=== PATIENT | male | born 1935 | race Caucasian/White ===

== ENCOUNTER 2017-08-29 08:34 | Emergency (ER) | payer OTHER, MEDICARE ==
[~2017-08-29] VITALS: Ht 177.8 cm; Wt 84.9 kg
[~2017-08-29 08:34] MED LIST: ASPIR 8181 M1 PO; ATIVAN0.5 MG PO; AZELASTINE137 MCG/0. BOTH NARES; Ascorbic Acid,Ester- PO; CALAN SR,COVER120 MG PO; CEFTIN500 MG PO; CENTRUM SILVER1 EAC3 PO; Colace PO; Cymbalta PO; DECADRON4 MG PO; DEXAMETHASONE4 MG PO; DOXYCYCLINE HY100 MG PO; DYMISTA NASAL S23 GM BOTH NARES; Dulcolax PO; Dulcolax PR; EMERGEN-C 1,01000 MG PO; FLONASE16 G1 BOTH NARES; FLUTICASONE PRO16 GM BOTH NARES; Florinef Acetate PO; HORIZANT600 MG PO; Heparin Sodium SC; KLOR-CON 1010 ME1 PO; LASIX20 MG PO; LEVAQUIN750 MG PO; LEVOFLOXACIN750 MG PO; LEVOTHYROXINE50 MCG PO; LIDODERM 5% P1 PATCH TD; LOPRESSOR25 MG PO; LOW DOSE ASPIRI81 M1 PO; LYRICA50 MG PO; LYRICA75 MG PO; Levothroid,Synthroid PO; MIDODRINE HCL5 MG PO; Milk Of Magnesia,MOM PO; OS-CAL 500+D T1 EAC1 PO; OXYCODONE5 MG PO; OYST-CAL D, OS500 M1 PO; PROAIR HFA8.5 GM IH; Pepcid PO; REVLIMID10 MG PO; ROXICODONE5 MG PO; SENOKOT S,PE1 TABLET PO; SPIRIVA RESPIMAT4 G1 IH; SPIRIVA RESPIMAT4 GM IH; SYNTHROID50 MCG PO; TAMSULOSIN HCL0.4 MG PO; THERAGRAN1 TABLET PO; Tylenol Regular Stre PO; VERAPAMIL HCL180 MG PO; VERAPAMIL SR180 MG PO; Zestril,Prinivil PO; oxyCODONE PO
[2017-08-29] MEDS ORDERED: POMALYST3 MG PO (08:41)
[2017-08-29 09:34] LABS: EOSINOPHIL (%) 3.7 % (0-5); EOSINOPHIL COUNT 0.2 K/uL (0-0.3); HEMATOCRIT 20.5 % (38.0-50.0); INSTRUMENT ABS NEUTROPHIL CT 2.5 K/uL; MCH 33.2 PG (29.0-34.0); MCHC 32.2 G/DL (30.0-36.0); MONOCYTE (%) 10.3 % (3-12); MONOCYTE COUNT 0.4 K/uL (0-0.8); NEUTROPHIL (%) 60.4 % (45-76); NEUTROPHIL COUNT 2.5 K/uL (1.8-6.4); PLATELET COUNT 111 K/uL (156-360); RBC DIS.WIDTH-CV 15.7 % (11.8-14.6); RBC DIS.WIDTH-SD 57.4 % (39-53); WHITE BLOOD COUNT 4.1 K/uL (4.1-10.2)
[2017-08-29 09:35] LABS: RED BLOOD COUNT 1.99 M/uL (4.00-5.50)
[2017-08-29 09:42] LABS: CHLORIDE 105 mEq/L (99-109); POTASSIUM 4.7 mEq/L (3.7-5.4); SODIUM 139 mEq/L (136-147)
[2017-08-29 09:44] LABS: GLUCOSE 109 mg/dL (70-99)
[2017-08-29 09:45] LABS: ANION GAP 13 MEQ/L (2-14)
[2017-08-29 09:46] LABS: TOTAL BILIRUBIN 0.6 mg/dL (0.0-1.0)
[2017-08-29 09:48] LABS: ALKALINE PHOSPHATASE 52 IU/L (3-129); GFR ESTIMATE (CALCULATED) 52 mL/min/
[2017-08-29 09:49] LABS: TROP-I INTERPRETATION NEGATIVE; TROPONIN-I < 0.01 ng/mL (0.0-0.30); UREA NITROGEN (BUN) 31 mg/dL (9-23)
[2017-08-29 12:15] LABS: TROP-I INTERPRETATION NEGATIVE; TROPONIN-I < 0.01 ng/mL (0.0-0.30)
[2017-08-29 13:51] VITALS: BP 125/67
[2017-08-29 14:31] VITALS: BP 125/72
[2017-08-29 15:31] VITALS: BP 142/76
[2017-08-29 16:30] VITALS: BP 160/85
[2017-08-29 17:08] VITALS: BP 183/83
[2017-08-29 17:42] VITALS: BP 183/83
[2017-08-30] MEDS ORDERED: FLONASE ALLERG9.9 ML BOTH NARES (13:31)
== END 2017-08-29 17:42 | disposition home or self-care (01) ==
LOC: EME 08:34
PROVIDERS: Emergency Medicine
PROC: 30233N1 Transfusion of Nonautologous Red Blood Cells into Peripheral Vein, Percutaneous Approach (ICD-10-PCS; principal; 2017-08-29)
DX: D64.9 Anemia, unspecified (principal); Z85.79 Personal history of other malignant neoplasms of lymphoid, hematopoietic and related tissues; R06.00 Dyspnea, unspecified; R51 Headache; Z92.21 Personal history of antineoplastic chemotherapy
CPT/HCPCS: 71020; 80053; 84484; 85025; 85379; 86850; 86870; 86900; 86901; 86920; 93005; 99281; 99285; J7040; P9040

== ENCOUNTER 2017-09-20 02:45 | Inpatient (IN) | payer OTHER, MEDICARE ==
[~2017-09-20] VITALS: Ht 177.8 cm; Wt 82.0 kg
[~2017-09-20 02:45] MED LIST changes: +FLONASE ALLERG9.9 ML BOTH NARES; +POMALYST3 MG PO
[2017-09-20 03:38] LABS: HEMATOCRIT 22.1 % (38.0-50.0); MCHC 32.6 G/DL (30.0-36.0); MCV 101.4 FL (86-99); MEAN PLAT.VOLUME 10.9 uM^3 (9.0-12.4); NRBC (%) 0.4 /100 WBC (0-0); PLATELET COUNT 110 K/uL (156-360); RED BLOOD COUNT 2.18 M/uL (4.00-5.50); WHITE BLOOD COUNT 4.9 K/uL (4.1-10.2)
[2017-09-20 03:49] LABS: CHLORIDE 105 mEq/L (99-109); POTASSIUM 4.4 mEq/L (3.7-5.4); SODIUM 135 mEq/L (136-147)
[2017-09-20 03:52] LABS: ANION GAP 11 MEQ/L (2-14)
[2017-09-20 03:53] LABS: TOTAL BILIRUBIN 0.3 mg/dL (0.0-1.0)
[2017-09-20 03:54] LABS: ALKALINE PHOSPHATASE 50 IU/L (3-129)
[2017-09-20 03:55] LABS: GFR ESTIMATE (CALCULATED) 36 mL/min/ (58.99-99999)
[2017-09-20 03:56] LABS: GLUCOSE 79 mg/dL (70-99); UREA NITROGEN (BUN) 47 mg/dL (9-23)
[2017-09-20 03:58] LABS: LIPASE 7 U/L (1.0-51.0)
[2017-09-20 05:04] LABS: EOSINOPHIL (%) 0.2 % (0-5); IMMATURE GRANULOCYTE (%) 2.1 % (0.0-0.7); IMMATURE GRANULOCYTE COUNT 0.1 K/uL; INSTRUMENT ABS NEUTROPHIL CT 3.1 K/uL; LYMPHOCYTE COUNT 1.2 K/uL (1.0-2.8); MONOCYTE (%) 9.5 % (3-12); MONOCYTE COUNT 0.5 K/uL (0-0.8); NEUTROPHIL (%) 63.7 % (45-76); NEUTROPHIL COUNT 3.1 K/uL (1.8-6.4)
[2017-09-20 14:24] LABS: HEMATOCRIT 21.1 % (38.0-50.0); MCV 99.1 FL (86-99)
[2017-09-20 14:48] VITALS: BP 179/82
[2017-09-20 19:40] VITALS: BP 150/70
[2017-09-20 23:22] VITALS: BP 180/80
[2017-09-21 05:25] VITALS: BP 162/82
[2017-09-21 05:56] LABS: EOSINOPHIL (%) 1.6 % (0-5); EOSINOPHIL COUNT 0.1 K/uL (0-0.3); HEMATOCRIT 22.9 % (38.0-50.0); IMMATURE GRANULOCYTE (%) 1.4 % (0.0-0.7); IMMATURE GRANULOCYTE COUNT 0.1 K/uL; INSTRUMENT ABS NEUTROPHIL CT 2.2 K/uL; LYMPHOCYTE COUNT 0.8 K/uL (1.0-2.8); MCH 33.2 PG (29.0-34.0); MCHC 32.8 G/DL (30.0-36.0); MCV 101.3 FL (86-99); MONOCYTE (%) 13.6 % (3-12); MONOCYTE COUNT 0.5 K/uL (0-0.8); NEUTROPHIL (%) 60.6 % (45-76); NEUTROPHIL COUNT 2.2 K/uL (1.8-6.4); NRBC (%) 0.5 /100 WBC (0-0); PLATELET COUNT 98 K/uL (156-360); RBC DIS.WIDTH-CV 15.9 % (11.8-14.6); RBC DIS.WIDTH-SD 58.1 % (39-53); RED BLOOD COUNT 2.26 M/uL (4.00-5.50); WHITE BLOOD COUNT 3.7 K/uL (4.1-10.2)
[2017-09-21 06:21] LABS: ANION GAP 12 MEQ/L (2-14); CHLORIDE 108 MEQ/L (99-109); GFR ESTIMATE (CALCULATED) 44 mL/min/ (58.99-99999); GLUCOSE 92 mg/dL (70-99); POTASSIUM 4.5 MEQ/L (3.7-5.4); SAMPLE HEMOLYSIS CHECK 0; SAMPLE ICTERIC CHECK 0; SAMPLE LIPEMIA CHECK 0; SODIUM 140 MEQ/L (136-147); UREA NITROGEN (BUN) 41 mg/dL (9-23)
[2017-09-21 07:39] VITALS: BP 179/84
[2017-09-21 10:04] VITALS: BP 159/76
[2017-09-21] MEDS ORDERED: LEVAQUIN500 MG PO (10:50)
== END 2017-09-21 11:18 | disposition home or self-care (01) | DRG 812 ==
LOC: EME 02:45 → ENRESERV 05:45 → CANRESERV 05:45 → EDOF 05:47 → 4EAST 05:47 → ENRESERV 08:04 → 4EAST 14:37
PROVIDERS: Emergency Medicine; Family Medicine
DX: D64.81 Anemia due to antineoplastic chemotherapy (principal); C90.00 Multiple myeloma not having achieved remission; J20.9 Acute bronchitis, unspecified; E03.9 Hypothyroidism, unspecified; I13.0 Hypertensive heart and chronic kidney disease with heart failure and stage 1 through stage 4 chronic kidney disease, or unspecified chronic kidney disease; I50.9 Heart failure, unspecified; M54.10 Radiculopathy, site unspecified; D63.8 Anemia in other chronic diseases classified elsewhere; I44.0 Atrioventricular block, first degree; N17.9 Acute kidney failure, unspecified; D69.6 Thrombocytopenia, unspecified; J45.909 Unspecified asthma, uncomplicated; N18.3 Chronic kidney disease, stage 3 (moderate); Z85.51 Personal history of malignant neoplasm of bladder; Z87.01 Personal history of pneumonia (recurrent)
CPT/HCPCS: 36415; 71020; 80048; 80053; 82784; 83605; 83690; 83880; 84145 90; 84165; 85014; 85018; 85025; 85027; 85379; 86850; 86900; 86901; 87040; 93005; 94640; 94640 76; 96361; 96375; 96409; 99202; 99281; 99285; G0463 25; J1100; J1956; J7040; J7050; J9047; Q0164

== ENCOUNTER 2017-12-05 17:53 | Inpatient (IN) | payer OTHER, MEDICARE ==
[~2017-12-05] VITALS: Ht 172.7 cm; Wt 81.5 kg
[~2017-12-05 17:53] MED LIST changes: +LEVAQUIN500 MG PO
[2017-12-05 18:25] LABS: BASOPHIL (%) 0.6 % (0-1); EOSINOPHIL (%) 7.9 % (0-5); EOSINOPHIL COUNT 0.6 K/uL (0-0.3); HEMATOCRIT 27.6 % (38.0-50.0); HEMOGLOBIN 9.3 G/DL (12.5-16.6); IMMATURE GRANULOCYTE (%) 1.4 % (0.0-0.7); LYMPHOCYTE (%) 45.9 % (15-42); LYMPHOCYTE COUNT 3.3 K/uL (1.0-2.8); MCHC 33.7 G/DL (30.0-36.0); MCV 97.9 FL (86-99); MONOCYTE (%) 8.8 % (3-12); MONOCYTE COUNT 0.6 K/uL (0-0.8); NEUTROPHIL (%) 35.4 % (45-76); NEUTROPHIL COUNT 2.5 K/uL (1.8-6.4); PLATELET COUNT 166 K/uL (156-360); RBC DIS.WIDTH-CV 15.7 % (11.8-14.6); RBC DIS.WIDTH-SD 56.4 % (39-53); RED BLOOD COUNT 2.82 M/uL (4.00-5.50); WHITE BLOOD COUNT 7.1 K/uL (4.1-10.2)
[2017-12-05 18:35] LABS: ALBUMIN 3.9 g/dL (3.2-4.8); CHLORIDE 107 mEq/L (99-109); POTASSIUM 4.2 mEq/L (3.7-5.4); SODIUM 141 mEq/L (136-147)
[2017-12-05 18:36] LABS: AMYLASE 54 IU/L (1-118)
[2017-12-05 18:38] LABS: GLUCOSE 103 mg/dL (70-99); TOTAL PROTEIN 6.9 g/dL (6.4-8.3)
[2017-12-05 18:39] LABS: TOTAL BILIRUBIN 0.5 mg/dL (0.0-1.0)
[2017-12-05 18:41] LABS: ALKALINE PHOSPHATASE 54 IU/L (3-129); CREATININE 1.3 mg/dL (0.6-1.3); GFR ESTIMATE (CALCULATED) 56 mL/min/ (58.99-99999); SERUM ETHYL ALCOHOL < 10 mg/dL
[2017-12-05 18:42] LABS: UREA NITROGEN (BUN) 24 mg/dL (9-23)
[2017-12-05 18:43] LABS: AST (GOT) 17 IU/L (2-34)
[2017-12-05 18:44] LABS: ALT (GPT) 14 IU/L (3-49)
[2017-12-05 18:45] LABS: LIPASE 5 U/L (1.0-51.0)
[2017-12-05 18:48] LABS: TROP-I INTERPRETATION NEGATIVE; TROPONIN-I < 0.01 ng/mL (0.0-0.30)
[2017-12-05 19:24] LABS: APPEARANCE SL.HAZY ((CLEAR)); BILIRUBIN NEGATIVE; BLOOD NEGATIVE; COLOR YELLOW ((YELLOW)); GLUCOSE (STRIP) NEGATIVE; KETONES NEGATIVE; LEUKOCYTES NEGATIVE; NITRITE NEGATIVE; PROTEIN (STRIP) 30; SPECIFIC GRAVITY 1.016 (1.000-1.030); UROBILINOGEN 0.2 MG/DL (0.2-1.0)
[2017-12-05 19:30] LABS: BACTERIA NONE SEEN /HPF; EPITHELIAL CELLS RARE /HPF; HYALINE CASTS 0-5 /LPF; MUCUS TRACE /LPF; UCUL ADDED? NO; WHITE BLOOD CELLS 0-5 /HPF (0-5)
[2017-12-05 19:33] LABS: AMPHETAMINE NEGATIVE (500 ng/mL); BARBITURATES NEGATIVE (200 ng/mL); BENZODIAZEPINES NEGATIVE (150 ng/mL); BUPRENORPHINE NEGATIVE (10 ng/mL); COCAINE NEGATIVE (150 ng/mL); METHADONE NEGATIVE (200 ng/mL); METHAMPHETAMINE NEGATIVE (500 ng/mL); OPIATES (MORPHINE) NEGATIVE (100 ng/mL); OXYCODONE PRESUMPTIVE POSITIVE (100 ng/mL); PHENCYCLIDINE NEGATIVE (25 ng/mL); PROPOXYPHENE NEGATIVE (300 ng/mL); THC CANNABINOIDS NEGATIVE (50 ng/mL); TRICYCLIC ANTIDEPRESSANTS NEGATIVE (300 ng/mL)
[2017-12-05 21:08] LABS: INTER. NORMALIZED RATIO 1.1
[2017-12-05 21:11] LABS: PTT 29.9 SEC (25-37)
[2017-12-05] MEDS ORDERED: LO-DOSE ASPIRIN81 M1 PO (22:20)
[2017-12-05] MEDS ORDERED: OS-CAL 500+D T1 EAC1 PO (22:21)
[2017-12-06] VITALS (7 sets, daily range): BP systolic 113–215; BP diastolic 65–104
[2017-12-06 06:19] LABS: HEMATOCRIT 25.7 % (38.0-50.0); HEMOGLOBIN 8.3 G/DL (12.5-16.6); MCH 31.8 PG (29.0-34.0); MCHC 32.3 G/DL (30.0-36.0); MCV 98.5 FL (86-99); PLATELET COUNT 148 K/uL (156-360); RBC DIS.WIDTH-CV 15.7 % (11.8-14.6); RBC DIS.WIDTH-SD 55.8 % (39-53); RED BLOOD COUNT 2.61 M/uL (4.00-5.50); WHITE BLOOD COUNT 6.1 K/uL (4.1-10.2)
[2017-12-06 06:39] LABS: ALBUMIN 3.2 G/DL (3.2-4.8); ALKALINE PHOSPHATASE 39 IU/L (3-129); ALT (GPT) 10 IU/L (3-49); AST (GOT) 13 IU/L (2-34); CHLORIDE 107 MEQ/L (99-109); CREATININE 1.2 MG/DL (0.6-1.3); GFR ESTIMATE (CALCULATED) > 59 mL/min/ (58.99-99999); GLUCOSE 130 mg/dL (70-99); SODIUM 140 MEQ/L (136-147); TOTAL BILIRUBIN 0.4 MG/DL (0.0-1.0); TOTAL PROTEIN 5.5 G/DL (6.4-8.3); UREA NITROGEN (BUN) 21 mg/dL (9-23)
[2017-12-07 04:59] VITALS: BP 162/98
[2017-12-07 05:34] LABS: BASOPHIL (%) 0.1 % (0-1); EOSINOPHIL (%) 0.1 % (0-5); HEMATOCRIT 24.5 % (38.0-50.0); IMMATURE GRANULOCYTE (%) 2.1 % (0.0-0.7); LYMPHOCYTE (%) 14.6 % (15-42); LYMPHOCYTE COUNT 1.2 K/uL (1.0-2.8); MCH 32.4 PG (29.0-34.0); MCHC 32.7 G/DL (30.0-36.0); MCV 99.2 FL (86-99); MONOCYTE (%) 2.1 % (3-12); MONOCYTE COUNT 0.2 K/uL (0-0.8); NEUTROPHIL COUNT 6.7 K/uL (1.8-6.4); PLATELET COUNT 143 K/uL (156-360); RBC DIS.WIDTH-CV 15.4 % (11.8-14.6); RBC DIS.WIDTH-SD 55.8 % (39-53); RED BLOOD COUNT 2.47 M/uL (4.00-5.50); WHITE BLOOD COUNT 8.3 K/uL (4.1-10.2)
[2017-12-07 06:02] LABS: CHLORIDE 108 MEQ/L (99-109); GFR ESTIMATE (CALCULATED) > 59 mL/min/ (58.99-99999); GLUCOSE 161 mg/dL (70-99); POTASSIUM 4.3 MEQ/L (3.7-5.4); SODIUM 139 MEQ/L (136-147); UREA NITROGEN (BUN) 19 mg/dL (9-23)
[2017-12-07 08:49] VITALS: BP 182/89
[2017-12-07] MEDS ORDERED: ANTIVERT25 MG PO (11:17)
[2017-12-07] MEDS ORDERED: CALAN SR,COVER180 MG PO (11:18)
[2017-12-07] MEDS ORDERED: PREDNISONE20 MG PO (11:19)
== END 2017-12-07 12:30 | disposition home or self-care (01) | DRG 305 ==
LOC: EME 17:53 → EDOF 22:21 → ENRESERV 22:23 → 4EAST 12-06 01:09
PROVIDERS: Emergency Medicine; Family Medicine
DX: I16.9 Hypertensive crisis, unspecified (principal); I12.9 Hypertensive chronic kidney disease with stage 1 through stage 4 chronic kidney disease, or unspecified chronic kidney disease; N18.2 Chronic kidney disease, stage 2 (mild); I65.21 Occlusion and stenosis of right carotid artery; C90.00 Multiple myeloma not having achieved remission; D63.0 Anemia in neoplastic disease; J30.2 Other seasonal allergic rhinitis; E03.9 Hypothyroidism, unspecified; G89.29 Other chronic pain; M54.10 Radiculopathy, site unspecified; Z85.51 Personal history of malignant neoplasm of bladder; Z85.820 Personal history of malignant melanoma of skin
CPT/HCPCS: 70450; 70496; 70498; 70551; 71045; 80048; 80053; 81003; 82150; 82948; 83690; 84484; 85025; 85027; 85610; 85730; 86850; 86900; 86901; 93005; 99281; 99285; G0480; J2405; J2765; J2920

== ENCOUNTER 2017-12-26 15:41 | Inpatient (IN) | payer OTHER, MEDICARE ==
[~2017-12-26] VITALS: Ht 177.8 cm; Wt 90.9 kg
[2017-12-26 09:35] LABS: FASTING STATUS NONFASTING
[2017-12-26 09:48] LABS: BASOPHIL (%) 0.2 % (0-1); EOSINOPHIL COUNT 0.1 K/uL (0-0.3); HEMATOCRIT 25.8 % (38.0-50.0); HEMOGLOBIN 8.5 G/DL (12.5-16.6); IMMATURE GRANULOCYTE (%) 0.5 % (0.0-0.7); LYMPHOCYTE (%) 16.3 % (15-42); LYMPHOCYTE COUNT 1.4 K/uL (1.0-2.8); MCH 32.8 PG (29.0-34.0); MCHC 32.9 G/DL (30.0-36.0); MCV 99.6 FL (86-99); MONOCYTE COUNT 0.6 K/uL (0-0.8); NEUTROPHIL COUNT 6.6 K/uL (1.8-6.4); PLATELET COUNT 140 K/uL (156-360); RBC DIS.WIDTH-CV 13.6 % (11.8-14.6); RBC DIS.WIDTH-SD 49.1 % (39-53); RED BLOOD COUNT 2.59 M/uL (4.00-5.50); WHITE BLOOD COUNT 8.7 K/uL (4.1-10.2)
[2017-12-26 10:59] LABS: CHLORIDE 105 MEQ/L (99-109); CREATININE 1.1 MG/DL (0.6-1.3); GFR ESTIMATE (CALCULATED) > 59 mL/min/ (58.99-99999); GLUCOSE 102 mg/dL (70-99); POTASSIUM 4.3 MEQ/L (3.7-5.4); SODIUM 138 MEQ/L (136-147); UREA NITROGEN (BUN) 17 mg/dL (9-23)
[~2017-12-26 15:41] MED LIST changes: +ANTIVERT25 MG PO; +CALAN SR,COVER180 MG PO; +LO-DOSE ASPIRIN81 M1 PO; +PREDNISONE20 MG PO
[2017-12-26 16:40] LABS: BASOPHIL (%) 0.1 % (0-1); EOSINOPHIL (%) 0.3 % (0-5); HEMATOCRIT 20.1 % (38.0-50.0); IMMATURE GRANULOCYTE (%) 0.5 % (0.0-0.7); LYMPHOCYTE (%) 12.8 % (15-42); LYMPHOCYTE COUNT 1.1 K/uL (1.0-2.8); MCH 34.1 PG (29.0-34.0); MCHC 34.8 G/DL (30.0-36.0); MONOCYTE (%) 7.6 % (3-12); MONOCYTE COUNT 0.7 K/uL (0-0.8); NEUTROPHIL (%) 78.7 % (45-76); PLATELET COUNT 128 K/uL (156-360); RBC DIS.WIDTH-CV 13.4 % (11.8-14.6); RBC DIS.WIDTH-SD 47.8 % (39-53); WHITE BLOOD COUNT 8.9 K/uL (4.1-10.2)
[2017-12-26 16:42] LABS: RED BLOOD COUNT 2.05 M/uL (4.00-5.50)
[2017-12-26 16:51] LABS: ALBUMIN 3.5 g/dL (3.2-4.8); CHLORIDE 106 mEq/L (99-109); POTASSIUM 4.7 mEq/L (3.7-5.4)
[2017-12-26 16:52] LABS: SODIUM 135 mEq/L (136-147)
[2017-12-26 16:54] LABS: GLUCOSE 107 mg/dL (70-99); TOTAL PROTEIN 7.4 g/dL (6.4-8.3)
[2017-12-26 16:56] LABS: TOTAL BILIRUBIN 0.8 mg/dL (0.0-1.0)
[2017-12-26 16:57] LABS: ALKALINE PHOSPHATASE 61 IU/L (3-129); CREATININE 1.2 mg/dL (0.6-1.3); GFR ESTIMATE (CALCULATED) > 59 mL/min/ (58.99-99999)
[2017-12-26 16:59] LABS: AST (GOT) 19 IU/L (2-34); UREA NITROGEN (BUN) 23 mg/dL (9-23)
[2017-12-26 17:00] LABS: ALT (GPT) 16 IU/L (3-49)
[2017-12-26] MEDS ORDERED: CALAN SR,COVER180 MG PO (17:34)
[2017-12-26] MEDS ORDERED: MECLIZINE HCL25 MG PO (17:36)
[2017-12-26] MEDS ORDERED: DELTASONE20 M1 PO (17:42)
[2017-12-26 17:56] LABS: INTER. NORMALIZED RATIO 1.3
[2017-12-26 17:58] LABS: PTT 31.6 SEC (25-37)
[2017-12-26 19:47] LABS: APPEARANCE CLEAR ((CLEAR)); BILIRUBIN NEGATIVE; BLOOD LARGE; COLOR YELLOW ((YELLOW)); GLUCOSE (STRIP) NEGATIVE; KETONES NEGATIVE; LEUKOCYTES NEGATIVE; NITRITE NEGATIVE; PROTEIN (STRIP) 100; SPECIFIC GRAVITY 1.018 (1.000-1.030); UROBILINOGEN 0.2 MG/DL (0.2-1.0)
[2017-12-26 19:54] LABS: BACTERIA NONE SEEN /HPF; EPITHELIAL CELLS RARE /HPF; HYALINE CASTS 0-5 /LPF; MUCUS TRACE /LPF; RED BLOOD CELLS 30-40 /HPF (0-5); UCUL ADDED? NO; WHITE BLOOD CELLS 0-5 /HPF (0-5)
[2017-12-26 20:11] VITALS: BP 149/68
[2017-12-26 20:20] LABS: ACETAMINOPHEN (TYLENOL) 15 mcg/mL (10-30); SALICYLATE < 5.0 MG/DL (15-30)
[2017-12-26 20:31] VITALS: BP 171/82
[2017-12-26 21:31] VITALS: BP 140/70
[2017-12-26 21:33] VITALS: BP 145/88
[2017-12-26 22:17] VITALS: BP 166/88
[2017-12-27] VITALS (9 sets, daily range): BP systolic 92–169; BP diastolic 52–88
[2017-12-27 06:20] LABS: BASOPHIL (%) 0.3 % (0-1); EOSINOPHIL (%) 0.4 % (0-5); HEMATOCRIT 24.9 % (38.0-50.0); HEMOGLOBIN 8.5 G/DL (12.5-16.6); IMMATURE GRANULOCYTE (%) 0.4 % (0.0-0.7); LYMPHOCYTE (%) 15.6 % (15-42); LYMPHOCYTE COUNT 1.2 K/uL (1.0-2.8); MCH 32.7 PG (29.0-34.0); MCHC 34.1 G/DL (30.0-36.0); MCV 95.8 FL (86-99); MONOCYTE (%) 8.1 % (3-12); MONOCYTE COUNT 0.6 K/uL (0-0.8); NEUTROPHIL (%) 75.2 % (45-76); NEUTROPHIL COUNT 5.9 K/uL (1.8-6.4); PLATELET COUNT 119 K/uL (156-360); RBC DIS.WIDTH-CV 15.2 % (11.8-14.6); RBC DIS.WIDTH-SD 52.5 % (39-53); WHITE BLOOD COUNT 7.8 K/uL (4.1-10.2)
[2017-12-28 04:19] VITALS: BP 161/85
[2017-12-28 06:12] LABS: BASOPHIL (%) 0.4 % (0-1); EOSINOPHIL (%) 4.7 % (0-5); EOSINOPHIL COUNT 0.3 K/uL (0-0.3); HEMATOCRIT 25.7 % (38.0-50.0); HEMOGLOBIN 8.6 G/DL (12.5-16.6); IMMATURE GRANULOCYTE (%) 0.9 % (0.0-0.7); LYMPHOCYTE (%) 21.7 % (15-42); LYMPHOCYTE COUNT 1.2 K/uL (1.0-2.8); MCH 32.5 PG (29.0-34.0); MCHC 33.5 G/DL (30.0-36.0); MONOCYTE (%) 8.9 % (3-12); MONOCYTE COUNT 0.5 K/uL (0-0.8); NEUTROPHIL (%) 63.4 % (45-76); NEUTROPHIL COUNT 3.4 K/uL (1.8-6.4); PLATELET COUNT 125 K/uL (156-360); RBC DIS.WIDTH-CV 15.1 % (11.8-14.6); RBC DIS.WIDTH-SD 53.6 % (39-53); RED BLOOD COUNT 2.65 M/uL (4.00-5.50); WHITE BLOOD COUNT 5.3 K/uL (4.1-10.2)
[2017-12-28 08:08] VITALS: BP 130/84
[2017-12-28] MEDS ORDERED: LEVAQUIN500 MG PO (11:10)
== END 2017-12-28 12:26 | disposition home or self-care (01) | DRG 194 ==
LOC: EME → EDBD 15:41 → EME 15:41 → EDOF 17:50 → 3EAST 17:50 → ENRESERV 18:06 → 3EAST 20:55
PROVIDERS: Family Medicine; Internal Medicine; Physician Assistant
PROC: 30233N1 Transfusion of Nonautologous Red Blood Cells into Peripheral Vein, Percutaneous Approach (ICD-10-PCS; principal; 2017-12-26)
DX: J18.1 Lobar pneumonia, unspecified organism (principal); C90.00 Multiple myeloma not having achieved remission; F05 Delirium due to known physiological condition; D63.0 Anemia in neoplastic disease; D69.59 Other secondary thrombocytopenia; E03.9 Hypothyroidism, unspecified; I12.9 Hypertensive chronic kidney disease with stage 1 through stage 4 chronic kidney disease, or unspecified chronic kidney disease; N18.2 Chronic kidney disease, stage 2 (mild); M54.10 Radiculopathy, site unspecified; R31.9 Hematuria, unspecified; R09.82 Postnasal drip; Z87.01 Personal history of pneumonia (recurrent); Z85.51 Personal history of malignant neoplasm of bladder; Z79.51 Long term (current) use of inhaled steroids
CPT/HCPCS: 36415; 71046; 74176; 80048; 80053; 81003; 83605; 85025; 85025 91; 85610; 85730; 86850; 86900; 86901; 86920; 87040; 93005; 94640; 94640 76; 99202; 99281; 99285; G0480; J0456; J0692; J0696; J3370; P9016

== ENCOUNTER 2018-06-06 09:07 | Inpatient (IN) | payer OTHER, MEDICARE ==
[~2018-06-06] VITALS: Ht 177.8 cm; Wt 79.6 kg
[~2018-06-06 09:07] MED LIST changes: +DELTASONE20 M1 PO; +MECLIZINE HCL25 MG PO; +MIDODRINE HCL2.5 MG PO
[2018-06-06 09:47] LABS: BASOPHIL (%) 0.2 % (0-1); EOSINOPHIL (%) 0.5 % (0-5); HEMATOCRIT 26.9 % (38.0-50.0); HEMOGLOBIN 9.1 G/DL (12.5-16.6); IMMATURE GRANULOCYTE (%) 0.2 % (0.0-0.7); LYMPHOCYTE (%) 19.4 % (15-42); LYMPHOCYTE COUNT 1.2 K/uL (1.0-2.8); MCH 32.3 PG (29.0-34.0); MCHC 33.8 G/DL (30.0-36.0); MCV 95.4 FL (86-99); MONOCYTE (%) 9.9 % (3-12); MONOCYTE COUNT 0.6 K/uL (0-0.8); NEUTROPHIL (%) 69.8 % (45-76); NEUTROPHIL COUNT 4.2 K/uL (1.8-6.4); PLATELET COUNT 131 K/uL (156-360); RBC DIS.WIDTH-CV 13.9 % (11.8-14.6); RBC DIS.WIDTH-SD 48.6 % (39-53); RED BLOOD COUNT 2.82 M/uL (4.00-5.50)
[2018-06-06 10:04] LABS: ALBUMIN 3.6 g/dL (3.2-4.8)
[2018-06-06 10:05] LABS: CHLORIDE 105 mEq/L (99-109); POTASSIUM 4.4 mEq/L (3.7-5.4); SODIUM 138 mEq/L (136-147)
[2018-06-06 10:07] LABS: GLUCOSE 101 mg/dL (70-99); TOTAL PROTEIN 8.8 g/dL (6.4-8.3)
[2018-06-06 10:09] LABS: TOTAL BILIRUBIN 0.5 mg/dL (0.0-1.0)
[2018-06-06 10:10] LABS: ALKALINE PHOSPHATASE 67 IU/L (3-129)
[2018-06-06 10:11] LABS: CREATININE 1.7 mg/dL (0.6-1.3); GFR ESTIMATE (CALCULATED) 41 mL/min/ (58.99-99999)
[2018-06-06 10:12] LABS: AST (GOT) 23 IU/L (2-34); UREA NITROGEN (BUN) 28 mg/dL (9-23)
[2018-06-06 10:13] LABS: ALT (GPT) 12 IU/L (3-49)
[2018-06-06 10:20] LABS: APPEARANCE CLEAR ((CLEAR)); BILIRUBIN NEGATIVE; BLOOD SMALL; COLOR YELLOW ((YELLOW)); GLUCOSE (STRIP) NEGATIVE; KETONES NEGATIVE; LEUKOCYTES NEGATIVE; NITRITE NEGATIVE; PROTEIN (STRIP) 30; SPECIFIC GRAVITY 1.014 (1.000-1.030); UROBILINOGEN 0.2 MG/DL (0.2-1.0)
[2018-06-06 10:26] LABS: BACTERIA NONE SEEN /HPF; CALCIUM OXALATE CRYSTALS 2+ /HPF; EPITHELIAL CELLS NONE SEEN /HPF; MUCUS TRACE /LPF; UCUL ADDED? NO; WHITE BLOOD CELLS 0-5 /HPF (0-5)
[2018-06-06] MEDS ORDERED: BENGAY113 GM TP (10:53)
[2018-06-06 13:36] VITALS: BP 108/55
[2018-06-06 16:14] VITALS: BP 88/65
[2018-06-06 19:17] VITALS: BP 107/50
[2018-06-06 22:55] VITALS: BP 151/77
[2018-06-07 04:29] VITALS: BP 133/55
[2018-06-07 05:58] LABS: BASOPHIL (%) 0.1 % (0-1); EOSINOPHIL (%) 0.3 % (0-5); HEMATOCRIT 26.1 % (38.0-50.0); HEMOGLOBIN 8.8 G/DL (12.5-16.6); IMMATURE GRANULOCYTE (%) 0.3 % (0.0-0.7); LYMPHOCYTE (%) 18.2 % (15-42); LYMPHOCYTE COUNT 1.3 K/uL (1.0-2.8); MCH 32.1 PG (29.0-34.0); MCHC 33.7 G/DL (30.0-36.0); MCV 95.3 FL (86-99); MONOCYTE (%) 9.1 % (3-12); MONOCYTE COUNT 0.6 K/uL (0-0.8); NRBC (%) 0.3 /100 WBC (0-0); PLATELET COUNT 128 K/uL (156-360); RBC DIS.WIDTH-CV 14.2 % (11.8-14.6); RBC DIS.WIDTH-SD 48.5 % (39-53); RED BLOOD COUNT 2.74 M/uL (4.00-5.50); WHITE BLOOD COUNT 6.9 K/uL (4.1-10.2)
[2018-06-07 06:37] LABS: CHLORIDE 102 MEQ/L (99-109); CREATININE 1.5 MG/DL (0.6-1.3); GFR ESTIMATE (CALCULATED) 48 mL/min/ (58.99-99999); GLUCOSE 114 mg/dL (70-99); POTASSIUM 4.2 MEQ/L (3.7-5.4); SODIUM 137 MEQ/L (136-147); UREA NITROGEN (BUN) 26 mg/dL (9-23)
[2018-06-07 07:43] VITALS: BP 134/78
[2018-06-07 11:44] VITALS: BP 132/67
[2018-06-07 16:11] VITALS: BP 115/59
[2018-06-07 19:10] VITALS: BP 139/75
[2018-06-07 23:23] VITALS: BP 132/62
[2018-06-08 03:50] VITALS: BP 129/69
[2018-06-08 06:01] LABS: BASOPHIL (%) 0.2 % (0-1); EOSINOPHIL (%) 0 % (0-5); HEMATOCRIT 26.8 % (38.0-50.0); IMMATURE GRANULOCYTE (%) 0.6 % (0.0-0.7); LYMPHOCYTE (%) 12.5 % (15-42); LYMPHOCYTE COUNT 0.8 K/uL (1.0-2.8); MCH 31.7 PG (29.0-34.0); MCHC 33.6 G/DL (30.0-36.0); MCV 94.4 FL (86-99); MONOCYTE (%) 3.6 % (3-12); MONOCYTE COUNT 0.2 K/uL (0-0.8); NEUTROPHIL (%) 83.1 % (45-76); NEUTROPHIL COUNT 5.1 K/uL (1.8-6.4); PLATELET COUNT 134 K/uL (156-360); RED BLOOD COUNT 2.84 M/uL (4.00-5.50); WHITE BLOOD COUNT 6.2 K/uL (4.1-10.2)
[2018-06-08 06:39] LABS: CHLORIDE 102 MEQ/L (99-109); CREATININE 1.3 MG/DL (0.6-1.3); GFR ESTIMATE (CALCULATED) 56 mL/min/ (58.99-99999); POTASSIUM 3.8 MEQ/L (3.7-5.4); SODIUM 136 MEQ/L (136-147); UREA NITROGEN (BUN) 32 mg/dL (9-23)
[2018-06-08 06:48] LABS: GLUCOSE 188 mg/dL (70-99)
[2018-06-08 08:21] VITALS: BP 101/56
[2018-06-08 16:20] VITALS: BP 165/85
[2018-06-09 00:15] VITALS: BP 133/68
[2018-06-09 06:42] LABS: BASOPHIL (%) 0.1 % (0-1); EOSINOPHIL (%) 0 % (0-5); HEMATOCRIT 26.3 % (38.0-50.0); IMMATURE GRANULOCYTE (%) 2.1 % (0.0-0.7); LYMPHOCYTE (%) 7.9 % (15-42); LYMPHOCYTE COUNT 0.7 K/uL (1.0-2.8); MCH 31.9 PG (29.0-34.0); MCHC 34.2 G/DL (30.0-36.0); MCV 93.3 FL (86-99); MONOCYTE (%) 5.5 % (3-12); MONOCYTE COUNT 0.5 K/uL (0-0.8); NEUTROPHIL (%) 84.4 % (45-76); NEUTROPHIL COUNT 7.7 K/uL (1.8-6.4); PLATELET COUNT 144 K/uL (156-360); RBC DIS.WIDTH-SD 47.6 % (39-53); RED BLOOD COUNT 2.82 M/uL (4.00-5.50); WHITE BLOOD COUNT 9.1 K/uL (4.1-10.2)
[2018-06-09 08:29] VITALS: BP 130/78
[2018-06-09 16:17] VITALS: BP 137/74
[2018-06-09 19:57] VITALS: BP 148/82
[2018-06-09 23:59] VITALS: BP 143/93
[2018-06-10 08:17] VITALS: BP 153/88
[2018-06-10] MEDS ORDERED: TAMSULOSIN HCL0.4 MG PO (14:28)
[2018-06-10] MEDS ORDERED: LEVAQUIN500 MG PO (14:29)
[2018-06-10] MEDS ORDERED: DELTASONE20 M1 PO (14:30)
[2018-06-10 15:45] VITALS: BP 135/76
== END 2018-06-10 15:58 | disposition home or self-care (01) | DRG 194 ==
LOC: EME 09:07 → 2EAST 11:35 → EDOF 11:35 → 2EAST 13:20
PROVIDERS: Emergency Medicine; Family Medicine
DX: J18.1 Lobar pneumonia, unspecified organism (principal); I12.9 Hypertensive chronic kidney disease with stage 1 through stage 4 chronic kidney disease, or unspecified chronic kidney disease; C90.01 Multiple myeloma in remission; D64.9 Anemia, unspecified; E03.9 Hypothyroidism, unspecified; K59.00 Constipation, unspecified; N18.2 Chronic kidney disease, stage 2 (mild); L03.012 Cellulitis of left finger; L76.82 Other postprocedural complications of skin and subcutaneous tissue; Y83.8 Other surgical procedures as the cause of abnormal reaction of the patient, or of later complication, without mention of misadventure at the time of the procedure; M25.551 Pain in right hip; G62.9 Polyneuropathy, unspecified; I95.9 Hypotension, unspecified; Z87.01 Personal history of pneumonia (recurrent); Z85.51 Personal history of malignant neoplasm of bladder; J45.909 Unspecified asthma, uncomplicated
CPT/HCPCS: 70450; 71045; 72197; 80048; 80053; 81003; 83605; 85025; 87040; 87070; 87075; 87077; 87147; 87186; 87205; 93005; 94799; 97530 GO; 99281; 99284; J0456; J0696; J2930